=== PATIENT | female | born 1960 | race Caucasian/White ===

== ENCOUNTER 2021-04-27 19:28 | Inpatient (IN) ==
[2021-04-27] MEDS ORDERED: Naloxone 0.4 MG/ML INJ IVP PRN (22:42)
[2021-04-27] MEDS ORDERED: Ondansetron ODT 4 MG TAB.RAPDIS SL PRN (22:42)
[2021-04-27] MEDS ORDERED: Melatonin 3 MG TABLET PO PRN (22:42)
[2021-04-27] MEDS ORDERED: 0.9 % Sodium Chloride 1,000 ML IVC SCH (22:45)
[2021-04-27] MEDS ORDERED: 0.9 % Sodium Chloride 1,000 ML IVC ONE (23:01)
[2021-04-27] MEDS ORDERED: D5% in Water 1,000 ML IVC PRN (23:53)
[2021-04-27] MEDS ORDERED: Dextrose Gel 15 GM/37.5 ML TUBE PO PRN ×2 (23:53)
[2021-04-27] MEDS ORDERED: *HR* Dextrose 50 % in Water (Syg) 50 ML SYRINGE IVP PRN (23:53)
[2021-04-27] MEDS: Insulin LISPRO 300 UNITS/3 ML VIAL SUBQ SCH (23:58)
[2021-04-28 00:14] LABS: Basophils % 0.2 %; Eosinophils % 0.1 %; Hematocrit 34.2 % (35.3-44.9); Immature Granulocytes % 0.8 % (0-4); Lymphocytes # 1.8 K/mcL (0.6-4.6); Lymphocytes % 11.5 %; Mean Corpuscular HGB Conc 29.2 g/dL (31.6-35.5); Mean Corpuscular Hemoglobin 22.8 pg (28.0-33.3); Mean Corpuscular Volume 77.9 fL (83.0-100.0); Mean Platelet Volume 9.3 fL (9.4-12.4); Monocytes # 0.8 K/mcL (0.0-1.3); Monocytes % 4.7 %; Neutrophils # 13.2 K/mcL (1.6-8.9); Platelet Count 258 K/mcL (140-400); Red Blood Count 4.39 M/mcL (3.82-4.97); Red Cell Distribution Width 17.5 % (11.5-14.5); Segmented Neutrophils % 82.7 %
[2021-04-28 00:47] LABS: Bilirubin,Total 0.3 mg/dL (0.3-1.0); Calcium 7.4 mg/dL (8.6-10.3); Globulin 3.9 g/dL (2.4-3.5); Potassium 6.4 mEq/L (3.5-5.1); Total Protein 7.9 g/dL (6.4-8.9); Troponin I 0.08 ng/mL (< 0.04)
[2021-04-28] MEDS ORDERED: Calcium Gluconate 1gm/50mL 1 GM/50 ML BAG IVPB PRN (00:57)
[2021-04-28] MEDS ORDERED: SODIUM ZIRCONIUM CYCLOSILICATE 5 GM POWD.PACK PO ONE ×2 (00:59→05:15)
[2021-04-28] MEDS ORDERED: Insulin Human Regular 10 UNIT in 0.9 % Sodium Chloride 10 ML IV ONE (01:01)
[2021-04-28] MEDS ORDERED: *HR* Dextrose 50 % in Water (Syg) 50 ML SYRINGE IVP STA (01:01)
[2021-04-28] MEDS ORDERED: Calcium Gluconate 1gm/50mL 1 GM/50 ML BAG IVPB STA (01:07)
[2021-04-28] MEDS ORDERED: Calcium Gluconate 1gm/50mL 1 GM/50 ML BAG IVPB ONE (01:09)
[2021-04-28] MEDS: Calcium Gluconate 1gm/50mL 1 GM/50 ML BAG IVPB SCH ×2 (01:42→02:44)
[2021-04-28] MEDS ORDERED: Acetaminophen 325 MG TABLET PO ONE (04:09)
[2021-04-28] MEDS: *HR* Heparin 5,000 UNIT/ML VIAL SQ SCH ×2 (04:27→18:02)
[2021-04-28 04:32] LABS: INR 1.2; Prothrombin Time 13.7 Seconds (9.4-12.1)
[2021-04-28 04:35] LABS: Activated Partial Thrombo Time 25.9 Seconds (26.0-36.0)
[2021-04-28 04:38] LABS: Calcium 7.4 mg/dL (8.6-10.3); Magnesium 2.5 mg/dL (1.6-2.6); Phosphorous 9.5 mg/dL (2.7-4.5); Potassium 5.7 mEq/L (3.5-5.1)
[2021-04-28] MEDS: Insulin LISPRO 300 UNITS/3 ML VIAL SUBQ SCH ×3 (08:31→16:29)
[2021-04-28] MEDS: cefTRIAXone 1,000 MG in Water for inj. (sterile) 10 ML IVP SCH (09:06)
[2021-04-28] MEDS: Sodium Bicarbonate 75 MEQ in 0.45 % Sodium Chloride 1,000 ML IVC SCH ×2 (09:07→23:08)
[2021-04-28 11:34] LABS: VBG HCO3 19 mEq/L (21-27); VBG PCO2 55 mmHg (41-51); VBG PH 7.15 pH Units (7.32-7.42); VBG PO2 41 mmHg (25-50)
[2021-04-28 11:54] LABS: VBG HCO3 21 mEq/L (21-27); VBG PCO2 59 mmHg (41-51); VBG PH 7.17 pH Units (7.32-7.42); VBG PO2 44 mmHg (25-50)
[2021-04-28 13:51] LABS: Calcium 6.9 mg/dL (8.6-10.3); Potassium 5.5 mEq/L (3.5-5.1); Uric Acid 9.7 mg/dL (2.3-7.6)
[2021-04-28 16:41] LABS: Bacteria,Urine Few per hpf (None-Few); Bilirubin,Urine Negative (Negative); Blood,Urine Negative (Negative); Clarity,Urine Turbid (Clear); Color,Urine Light-Yellow (Yellow); Glucose,Urine (UA) 70 mg/dL (Normal); Ketones,Urine Negative (Negative); Leukocyte Esterase,Urine Negative (Negative); Mucus,Urine Few per lpf (None-Few); Nitrite,Urine Negative (Negative); PH,Urine 5.5 pH Units (5.0-8.0); Protein,Urine 50 mg/dL (Neg-Trace); RBC,Urine 0-3 per hpf (0-3); Renal Epithelial Cells,Urine Few per hpf (None-Few); Specific Gravity,Urine 1.014 (1.010-1.025); Squamous Epithelial Cell,Urine Moderate per hpf (None-Few); Urobilinogen,Urine Normal (Normal); WBC,Urine 15-30 per hpf (0-3)
[2021-04-28 17:25] LABS: Sodium, Urine 29.2 mEq/L
[2021-04-28] MEDS: clonazePAM 1 MG TABLET PO SCH (21:46)
[2021-04-28] MEDS: Budesonide/Formoterol 160/4.5 1 PUFF INH IH SCH (22:03)
[2021-04-29 00:57] LABS: Basophils % 0.2 %; Eosinophils # 0.1 K/mcL (0.0-0.6); Eosinophils % 0.6 %; Hematocrit 27.2 % (35.3-44.9); Immature Granulocytes % 1.2 % (0-4); Lymphocytes # 1.8 K/mcL (0.6-4.6); Lymphocytes % 14.3 %; Mean Corpuscular HGB Conc 30.1 g/dL (31.6-35.5); Mean Corpuscular Hemoglobin 23.4 pg (28.0-33.3); Mean Corpuscular Volume 77.5 fL (83.0-100.0); Mean Platelet Volume 9.3 fL (9.4-12.4); Monocytes % 8.4 %; Neutrophils # 9.3 K/mcL (1.6-8.9); Nucleated Red Blood Cells 0.2 /100 WBC (0); Platelet Count 208 K/mcL (140-400); Red Blood Count 3.51 M/mcL (3.82-4.97); Red Cell Distribution Width 17.3 % (11.5-14.5); Segmented Neutrophils % 75.3 %; White Blood Count 12.3 K/mcL (4.3-11.1)
[2021-04-29 01:07] LABS: Hemoglobin 8.2 g/dL (11.5-15.4)
[2021-04-29 01:14] LABS: Calcium 6.8 mg/dL (8.6-10.3); Magnesium 2.6 mg/dL (1.6-2.6); Phosphorous 9.7 mg/dL (2.7-4.5); Potassium 5.2 mEq/L (3.5-5.1)
[2021-04-29] MEDS: *HR* Heparin 5,000 UNIT/ML VIAL SQ SCH ×3 (04:34→21:59)
[2021-04-29] MEDS: Budesonide/Formoterol 160/4.5 1 PUFF INH IH SCH ×2 (07:58→21:57)
[2021-04-29] MEDS: Insulin LISPRO 300 UNITS/3 ML VIAL SUBQ SCH ×3 (11:09→16:26)
[2021-04-29] MEDS: ARIPiprazole 2 MG TABLET PO SCH (11:11)
[2021-04-29] MEDS: Metoprolol XL (24 HR) Succ 25 MG TAB.ER.24H PO SCH (11:11)
[2021-04-29] MEDS: FLUoxetine 20 MG CAPSULE PO SCH (11:11)
[2021-04-29] MEDS: Cyanocobalamin (B-12) 1,000 MCG TABLET PO SCH (11:12)
[2021-04-29] MEDS: cefTRIAXone 1,000 MG in Water for inj. (sterile) 10 ML IVP SCH (11:14)
[2021-04-29] MEDS: SODIUM ZIRCONIUM CYCLOSILICATE 5 GM POWD.PACK PO SCH (11:14)
[2021-04-29] MEDS: Sodium Bicarbonate 75 MEQ in 0.45 % Sodium Chloride 1,000 ML IVC SCH (18:26)
[2021-04-29] MEDS: clonazePAM 1 MG TABLET PO SCH (21:58)
[2021-04-30 04:50] LABS: Basophils % 0.2 %; Eosinophils # 0.1 K/mcL (0.0-0.6); Hematocrit 25.7 % (35.3-44.9); Hemoglobin 7.9 g/dL (11.5-15.4); Immature Granulocytes % 1.7 % (0-4); Lymphocytes # 1.8 K/mcL (0.6-4.6); Lymphocytes % 19.1 %; Mean Corpuscular HGB Conc 30.7 g/dL (31.6-35.5); Mean Corpuscular Hemoglobin 23.4 pg (28.0-33.3); Mean Platelet Volume 9.5 fL (9.4-12.4); Monocytes # 0.7 K/mcL (0.0-1.3); Monocytes % 7.3 %; Neutrophils # 6.7 K/mcL (1.6-8.9); Nucleated Red Blood Cells 0.2 /100 WBC (0); Platelet Count 232 K/mcL (140-400); Red Blood Count 3.38 M/mcL (3.82-4.97); Red Cell Distribution Width 17.4 % (11.5-14.5); Segmented Neutrophils % 70.7 %; White Blood Count 9.4 K/mcL (4.3-11.1)
[2021-04-30 05:08] LABS: Calcium 6.6 mg/dL (8.6-10.3); Magnesium 2.5 mg/dL (1.6-2.6); Phosphorous 9.5 mg/dL (2.7-4.5); Potassium 4.7 mEq/L (3.5-5.1)
[2021-04-30] MEDS: *HR* Heparin 5,000 UNIT/ML VIAL SQ SCH ×3 (05:16→21:25)
[2021-04-30 05:19] LABS: ABG Base Excess -6 mEq/L (-2 to 3); ABG HCO3 20 mEq/L (21-27); ABG Oxygen Saturation 97 % (95-98); ABG PCO2 43 mmHg (35-45); ABG PH 7.28 pH Units (7.32-7.45); ABG PO2 103 mmHg (85-104); ABG TCO2 22 mEq/L (20-26)
[2021-04-30] MEDS: Budesonide/Formoterol 160/4.5 1 PUFF INH IH SCH ×2 (07:47→19:42)
[2021-04-30] MEDS: Insulin LISPRO 300 UNITS/3 ML VIAL SUBQ SCH ×3 (08:17→16:05)
[2021-04-30] MEDS: Sodium Bicarbonate 75 MEQ in 0.45 % Sodium Chloride 1,000 ML IVC SCH (08:35)
[2021-04-30] MEDS: ARIPiprazole 2 MG TABLET PO SCH (08:36)
[2021-04-30] MEDS: Cyanocobalamin (B-12) 1,000 MCG TABLET PO SCH (08:36)
[2021-04-30] MEDS: Metoprolol XL (24 HR) Succ 25 MG TAB.ER.24H PO SCH (08:36)
[2021-04-30] MEDS: SODIUM ZIRCONIUM CYCLOSILICATE 5 GM POWD.PACK PO SCH (08:36)
[2021-04-30] MEDS: FLUoxetine 20 MG CAPSULE PO SCH (08:36)
[2021-04-30] MEDS: cefTRIAXone 1,000 MG in Water for inj. (sterile) 10 ML IVP SCH (08:36)
[2021-04-30] MEDS: clonazePAM 1 MG TABLET PO SCH (21:25)
[2021-05-01] MEDS: *HR* Heparin 5,000 UNIT/ML VIAL SQ SCH ×3 (04:59→20:33)
[2021-05-01] MEDS: Insulin LISPRO 300 UNITS/3 ML VIAL SUBQ SCH ×3 (08:08→16:42)
[2021-05-01] MEDS: FLUoxetine 20 MG CAPSULE PO SCH (08:18)
[2021-05-01] MEDS: Cyanocobalamin (B-12) 1,000 MCG TABLET PO SCH (08:18)
[2021-05-01] MEDS: cefTRIAXone 1,000 MG in Water for inj. (sterile) 10 ML IVP SCH (08:19)
[2021-05-01] MEDS: ARIPiprazole 2 MG TABLET PO SCH (08:19)
[2021-05-01] MEDS: Metoprolol XL (24 HR) Succ 25 MG TAB.ER.24H PO SCH (08:19)
[2021-05-01] MEDS: Budesonide/Formoterol 160/4.5 1 PUFF INH IH SCH ×2 (08:47→21:31)
[2021-05-01 10:15] LABS: Basophils % 0.2 %; Eosinophils # 0.1 K/mcL (0.0-0.6); Eosinophils % 1.1 %; Hematocrit 26.4 % (35.3-44.9); Hemoglobin 7.9 g/dL (11.5-15.4); Immature Granulocytes % 1.4 % (0-4); Lymphocytes # 1.5 K/mcL (0.6-4.6); Lymphocytes % 17.3 %; Mean Corpuscular HGB Conc 29.9 g/dL (31.6-35.5); Mean Platelet Volume 9.3 fL (9.4-12.4); Monocytes # 0.8 K/mcL (0.0-1.3); Nucleated Red Blood Cells 0.2 /100 WBC (0); Platelet Count 249 K/mcL (140-400); Red Blood Count 3.43 M/mcL (3.82-4.97); Red Cell Distribution Width 17.5 % (11.5-14.5); White Blood Count 8.4 K/mcL (4.3-11.1)
[2021-05-01 10:43] LABS: Albumin 3.7 g/dL (3.5-5.7); Calcium 7.2 mg/dL (8.6-10.3); Phosphorous 8.7 mg/dL (2.7-4.5); Potassium 4.6 mEq/L (3.5-5.1)
[2021-05-01] MEDS: clonazePAM 1 MG TABLET PO SCH (20:33)
[2021-05-02 02:02] LABS: Basophils % 0.4 %; Eosinophils # 0.1 K/mcL (0.0-0.6); Eosinophils % 1.3 %; Hematocrit 27.2 % (35.3-44.9); Hemoglobin 8.1 g/dL (11.5-15.4); Immature Granulocytes % 1.2 % (0-4); Lymphocytes # 1.4 K/mcL (0.6-4.6); Lymphocytes % 16.5 %; Mean Corpuscular HGB Conc 29.8 g/dL (31.6-35.5); Mean Corpuscular Volume 77.3 fL (83.0-100.0); Mean Platelet Volume 9.3 fL (9.4-12.4); Monocytes # 0.9 K/mcL (0.0-1.3); Monocytes % 10.8 %; Neutrophils # 5.9 K/mcL (1.6-8.9); Nucleated Red Blood Cells 0.2 /100 WBC (0); Platelet Count 241 K/mcL (140-400); Red Blood Count 3.52 M/mcL (3.82-4.97); Red Cell Distribution Width 17.5 % (11.5-14.5); Segmented Neutrophils % 69.8 %; White Blood Count 8.4 K/mcL (4.3-11.1)
[2021-05-02 02:14] LABS: Albumin 3.9 g/dL (3.5-5.7); Albumin/Globulin Ratio 1.2 (1.1-2.2); Bilirubin,Direct 0.1 mg/dL (0.0-0.2); Bilirubin,Indirect 0.2 mg/dL (0.0-1.0); Bilirubin,Total 0.3 mg/dL (0.3-1.0); Calcium 7.7 mg/dL (8.6-10.3); Globulin 3.3 g/dL (2.4-3.5); Magnesium 2.7 mg/dL (1.6-2.6); Phosphorous 7.7 mg/dL (2.7-4.5); Potassium 4.3 mEq/L (3.5-5.1); Total Protein 7.2 g/dL (6.4-8.9)
[2021-05-02 02:37] LABS: Folate 5.5 ng/mL (3.0-16.0)
[2021-05-02 02:45] LABS: Vitamin B12 > 1500 pg/mL (250-1100)
[2021-05-02] MEDS: *HR* Heparin 5,000 UNIT/ML VIAL SQ SCH ×3 (05:16→21:48)
[2021-05-02] MEDS: Budesonide/Formoterol 160/4.5 1 PUFF INH IH SCH ×2 (07:39→19:51)
[2021-05-02] MEDS: Insulin LISPRO 300 UNITS/3 ML VIAL SUBQ SCH ×3 (08:10→18:03)
[2021-05-02] MEDS: Cyanocobalamin (B-12) 1,000 MCG TABLET PO SCH (08:16)
[2021-05-02] MEDS: Metoprolol XL (24 HR) Succ 25 MG TAB.ER.24H PO SCH (08:16)
[2021-05-02] MEDS: FLUoxetine 20 MG CAPSULE PO SCH (08:16)
[2021-05-02] MEDS: cefTRIAXone 1,000 MG in Water for inj. (sterile) 10 ML IVP SCH (08:16)
[2021-05-02] MEDS: ARIPiprazole 2 MG TABLET PO SCH (08:16)
[2021-05-02] MEDS ORDERED: Iron Sucrose Complex 200 MG in 0.9 % Sodium Chloride 100 ML IVPB ONE (14:37)
[2021-05-02] MEDS: clonazePAM 1 MG TABLET PO SCH (21:49)
[2021-05-03 04:27] LABS: Calcium 8.1 mg/dL (8.6-10.3); Magnesium 2.8 mg/dL (1.6-2.6); Potassium 4.6 mEq/L (3.5-5.1)
[2021-05-03 05:15] LABS: Basophils % 0.2 %; Eosinophils # 0.1 K/mcL (0.0-0.6); Eosinophils % 1.3 %; Hematocrit 27.2 % (35.3-44.9); Immature Granulocytes % 0.7 % (0-4); Lymphocytes # 1.5 K/mcL (0.6-4.6); Lymphocytes % 16.1 %; Mean Corpuscular HGB Conc 29.4 g/dL (31.6-35.5); Mean Corpuscular Hemoglobin 23.2 pg (28.0-33.3); Mean Corpuscular Volume 78.8 fL (83.0-100.0); Mean Platelet Volume 9.2 fL (9.4-12.4); Monocytes % 10.9 %; Neutrophils # 6.7 K/mcL (1.6-8.9); Platelet Count 274 K/mcL (140-400); Red Blood Count 3.45 M/mcL (3.82-4.97); Red Cell Distribution Width 17.6 % (11.5-14.5); Segmented Neutrophils % 70.8 %; White Blood Count 9.4 K/mcL (4.3-11.1)
[2021-05-03] MEDS: *HR* Heparin 5,000 UNIT/ML VIAL SQ SCH ×3 (05:28→20:58)
[2021-05-03 07:07] LABS: Estimated Average Glucose 148 mg/dl; Hemoglobin A1C 6.8 %
[2021-05-03] MEDS: Insulin LISPRO 300 UNITS/3 ML VIAL SUBQ SCH ×3 (08:08→16:46)
[2021-05-03] MEDS: FLUoxetine 20 MG CAPSULE PO SCH (08:50)
[2021-05-03] MEDS: Folic Acid 1 MG TABLET PO SCH (08:50)
[2021-05-03] MEDS: ARIPiprazole 2 MG TABLET PO SCH (08:50)
[2021-05-03] MEDS: Metoprolol XL (24 HR) Succ 25 MG TAB.ER.24H PO SCH (08:50)
[2021-05-03] MEDS: Cyanocobalamin (B-12) 1,000 MCG TABLET PO SCH (08:50)
[2021-05-03] MEDS: Budesonide/Formoterol 160/4.5 1 PUFF INH IH SCH ×2 (09:01→20:21)
[2021-05-03] MEDS: clonazePAM 1 MG TABLET PO SCH (20:58)
[2021-05-04 01:16] LABS: Basophils % 0.2 %; Eosinophils # 0.2 K/mcL (0.0-0.6); Eosinophils % 1.6 %; Hematocrit 25.1 % (35.3-44.9); Hemoglobin 7.4 g/dL (11.5-15.4); Immature Granulocytes % 0.7 % (0-4); Lymphocytes # 1.6 K/mcL (0.6-4.6); Lymphocytes % 15.9 %; Mean Corpuscular HGB Conc 29.5 g/dL (31.6-35.5); Mean Corpuscular Hemoglobin 23.3 pg (28.0-33.3); Mean Corpuscular Volume 78.9 fL (83.0-100.0); Mean Platelet Volume 9.3 fL (9.4-12.4); Monocytes # 0.9 K/mcL (0.0-1.3); Neutrophils # 7.1 K/mcL (1.6-8.9); Platelet Count 260 K/mcL (140-400); Red Blood Count 3.18 M/mcL (3.82-4.97); Red Cell Distribution Width 17.6 % (11.5-14.5); Segmented Neutrophils % 72.6 %; White Blood Count 9.8 K/mcL (4.3-11.1)
[2021-05-04 01:29] LABS: Calcium 8.3 mg/dL (8.6-10.3); Magnesium 2.7 mg/dL (1.6-2.6); Phosphorous 3.8 mg/dL (2.7-4.5); Potassium 4.3 mEq/L (3.5-5.1)
[2021-05-04] MEDS ORDERED: Nystatin POWDER 30 GM BOTTLE TP SCH (02:00)
[2021-05-04] MEDS: *HR* Heparin 5,000 UNIT/ML VIAL SQ SCH (04:29)
[2021-05-04 07:06] VITALS: BP 144/78; PULSE 66; TEMP 97.4
[2021-05-04] MEDS: Budesonide/Formoterol 160/4.5 1 PUFF INH IH SCH (07:45)
[2021-05-04] MEDS: Cyanocobalamin (B-12) 1,000 MCG TABLET PO SCH (08:42)
[2021-05-04] MEDS: FLUoxetine 20 MG CAPSULE PO SCH (08:42)
[2021-05-04] MEDS: Folic Acid 1 MG TABLET PO SCH (08:43)
[2021-05-04] MEDS: Metoprolol XL (24 HR) Succ 25 MG TAB.ER.24H PO SCH (08:43)
[2021-05-04] MEDS ORDERED: Iron Sucrose Complex 250 MG in 0.9 % Sodium Chloride 250 ML IVPB SCH (09:00)
[2021-05-04 13:34] VITALS: O2SAT 97
== END 2021-05-04 11:40 | disposition home or self-care (01) | DRG 720 ==
LOC: 2ANU → SUATTDRO 04-28 12:54
PROVIDERS: ADMIT Internal Medicine; ATTEND Pharmacist